=== PATIENT | male | born 2000 | race Caucasian/White ===

== ENCOUNTER 2020-08-26 06:39 | Emergency (ER) | payer BC, OTHER ==
[~2020-08-26 06:39] MED LIST: IBUPROFEN600 MG PO; IBUPROFEN800 MG PO; ZITHROMAX250 MG PO
== END 2020-08-26 07:37 | disposition home or self-care (01) ==
LOC: ER1 06:39
DX: R55 Syncope and collapse (principal); F17.200 Nicotine dependence, unspecified, uncomplicated; Z88.8 Allergy status to other drugs, medicaments and biological substances
CPT/HCPCS: 93005; 99284

== ENCOUNTER 2021-07-03 18:55 | Emergency (ER) | payer BC | END 2021-07-03 20:20 | disposition left against medical advice (07) | LOC: ER1 18:55 | DX: R22.0 Localized swelling, mass and lump, head (principal); F17.210 Nicotine dependence, cigarettes, uncomplicated | CPT/HCPCS: 99283; Q9967 ==

== ENCOUNTER 2021-09-20 23:46 | Emergency (ER) | payer BC ==
[2021-09-21] MEDS ORDERED: IBUPROFEN800 MG PO (00:25)
[2021-09-21] MEDS ORDERED: CLEOCIN HCL150 MG PO (00:25)
[2021-09-21] MEDS ORDERED: PERCOCET 5/325 T1 EA PO (00:37)
== END 2021-09-21 00:47 | disposition home or self-care (01) ==
LOC: ER1 23:46
DX: J02.9 Acute pharyngitis, unspecified (principal); F17.210 Nicotine dependence, cigarettes, uncomplicated; Z88.0 Allergy status to penicillin
CPT/HCPCS: 96372; 99282; J1885